=== PATIENT | female | born 1990 | race Caucasian/White ===

== ENCOUNTER 2017-03-03 02:28 | Outpatient (CLI) | payer BC ==
[2017-03-03 02:35] VITALS: BP 134/84; PULSE 78; RESP 16; TEMP 98.3
--- NOTE | 2017-05-01 11:02 | P.MSEPDOC ---
Presenting Problems - Arrival Data Date of Arrival on Unit: 03/03/17 Time of Arrival on Unit: 02:29 Mode of Transport: Ambulatory - Complaint OB-Reason for Admission/Chief Complaint: Possible Onset of Labor Comment: contractions since 2129 Medical History - Information : 2 Para: 1 Term: 1 : 0 Abortions: Spontaneous or Elective: 0 Number of Living Children: 1 - Gestational Age Expected Date of Delivery: 03/20/17 Gestational Age by CAMILLA (wks/days): 46 Weeks and 0 Days Review of Systems - Review of Systems Constitutional: No problems Breast: No problems ENT: No problems Cardiovascular: No problems Respiratory: No problems Gastrointestinal: No problems Genitourinary: No problems Musculoskeletal: No problems Neurological: No problems Skin: No problems Vital Signs - Temperature Temperature: 98.3 F Temperature Source: Oral - Pulse Right Pulse Rate: 78 Pulse Assessment Method: Pulse Oximetry - Respirations Respiratory Rate: 16 O2 Sat by Pulse Oximetry: 97 - Blood Pressure Right Arm Blood Pressure: 134/84 Blood Pressure Mean: 100 Blood Pressure Source: Automatic Cuff Medical Screen Scoring (Pre) - Cervical Exam Dilation: 4-7 cm = 2 Effacement: More than 50% = 2 Membranes: Intact - Uterine Contractions Frequency: > or = 36 weeks =2 Duration: > 40 seconds = 2 Intensity: N/A - Maternal Vital Signs Maternal Temperature: N/A Maternal Blood Pressure: N/A Signs of Preeclampsia: N/A Maternal Respirations: N/A - Assessment Baseline FHR: 135 Heart Rate - NICHD Category: Category I (Normal) = 0 NST: Reactive Position: N/A - Total Score Total Score (Pre): 8 - Level of Risk Level of Risk: Medium (6-9) Medical Screen Scoring (Post) - Cervical Exam Dilation: 4-7 cm = 2 Effacement: More than 50% = 2 Membranes: Intact - Uterine Contractions Frequency: > 5 minutes apart = 1 Duration: > 40 seconds = 2 Intensity: N/A - Maternal Vital Signs Maternal Temperature: N/A Maternal Blood Pressure: N/A Signs of Preeclampsia: N/A Maternal Respirations: N/A - Maternal Trauma Maternal Trauma: N/A - Assessment Heart Rate: 135 Heart Rate - NICHD Category: Category I (Normal) = 0 NST: Reactive Position: N/A Station: N/A - Total Score Total Score (Post): 7 - Post Treatment Level of Risk Post Treatment Level of Risk: Medium (6-9) Physician Notification (Post) - Physician Notified Physician Notified Date: 03/03/17 Physician Notified Time: 04:45 Spoke With: DR VENTURA New Order Received: Yes Disposition - Disposition OB Disposition: Discharge to home, Written follow up instructions reviewed Discharge Date: 03/03/17 Discharge Time: 04:53 I agree with the RN Medical Screening Exam: No Physician's MSE Comment: Gestational age identified at the top of the chart is a 46-0/7 weeks. This cannot be correct. The remainder of the MSE is accurate Risk & Benefit of care provided described in d/c instruction: Yes Diagnosis: FALSE LABOR, UNSPECIFIED
== END 2017-03-03 04:53 | disposition home or self-care (01) ==
LOC: FBPOP 02:28
PROVIDERS: ATTEND Obstetrics & Gynecology
DX: O47.9 False labor, unspecified (principal); Z3A.49 Greater than 42 weeks gestation of pregnancy
CPT/HCPCS: 59025; 99213

== ENCOUNTER 2017-03-11 23:59 | Inpatient (IN) | payer BC ==
[2017-03-12] MEDS ORDERED: CARBOPROST TROMETHAMINE 250 MCG/ML 1 ML AMP IM PRN (00:15)
[2017-03-12] MEDS ORDERED: LIDOCAINE 1% (PF) 10 MG/ML (30 ML SDV) SQ PRN (00:15)
[2017-03-12] MEDS ORDERED: METHYLERGONOVINE 0.2 MG/ML 1 ML AMP IM PRN (00:15)
[2017-03-12] MEDS ORDERED: TERBUTALINE 1 MG/ML VIAL SQ PRN (00:15)
[2017-03-12] MEDS ORDERED: OXYTOCIN 10 UNIT/ML 1 ML VIAL IM PRN (00:15)
[2017-03-12] MEDS: LACTATED RINGERS 1,000 ML IV SCH ×2 (00:32→21:03)
[2017-03-12 00:41] LABS: Basophils % (A) 0 %; CH 32.7; CHCM 35.5; Eosinophils # (A) 0.1 k/uL (0-0.7); Eosinophils % (A) 1 %; HCT 38.7 % (34.0-46.0); HDW 2.56; HGB 13.7 gm/dL (11.4-16.0); Luc # (Auto) 0.45; Luc % (Auto) 4; Lymphocytes # (A) 2.8 k/uL (1.0-4.8); Lymphocytes % (A) 27 %; MCH 32.6 pg (25.0-35.0); MCHC 35.3 g/dL (31.0-37.0); MCV 92.5 fL (80.0-100.0); Mean Platelet Volume 8.3; Monocytes # (A) 0.7 k/uL (0-1.0); Monocytes % (A) 6 %; Neutrophils # (A) 6.4 k/uL (1.3-7.7); Neutrophils % (A) 61 %; RBC 4.18 m/uL (3.80-5.40); RDW 13.5 % (11.5-15.5); WBC 10.5 k/uL (3.8-10.6); WBC (Perox) 9.89
--- NOTE | 2017-03-12 01:25 | P.HPOB ---
History of Present Illness H&P Date: 03/12/17 Chief Complaint: My water broke at 1045. This is a 26-year-old white female 2 para 1001 EDC 03/20/2017 at 38-6/7 weeks' gestation. Patient presented with a complaint of her water breaking at home, clear fluid, with strong regular uterine contractions to follow. Fetus is been active throughout the . is remarkable for estimated weight greater than 97th percentile. She denies vaginal bleeding. Past medical history is significant for anxiety, bulimia, and depression controlled with Wellbutrin. Past surgical history wisdom teeth extracted, some surgery in the past, colposcopy. Current medications vitamin daily, Singulair 10 mg daily ALLERGIES include seasonal ALLERGIES as well as well as yeast ALLERGY. Family history significant for Down syndrome and a paternal uncle. Social history patient is a middle school tutor in [employer], she is , she has never smoked tobacco and denies drug use. Obstetric history: Blood type O positive, rubella status immune. Hepatitis B surface antigen, rupee strep cultures, HIV testing, gonorrhea and chlamydia cultures all negative. Thyroid function studies within normal limits. Urine culture negative. One-hour Glucola 102. On exam this is a pleasant white female, 5 foot 2 inches, 185 pounds, blood pressure 136/83, vital signs are stable and she is afebrile. The general physical exam is within normal limits. The chest is clear in all ram. Cervix on admission 7 cm dilated, -2 station, vertex presentation, obvious ruptured membranes, 80-90% effaced. heart tones consistent with reactive NST. Impression: 38-6/7 weeks intrauterine , anticipated large for gestational age fetus, active spontaneous labor. All signs reassuring. Plan: Close maternal and surveillance. Analgesic options are offered to the patient. Anticipate normal spontaneous vaginal delivery. Past Medical History Additional Past Medical History / Comment(s): bulimia History of Any Multi-Drug Resistant Organisms: None Reported Past Surgical History: Orthopedic Surgery Additional Past Surgical History / Comment(s): nasal vessels cauterized, thumb surgery Past Anesthesia/Blood Transfusion Reactions: No Reported Reaction Past Psychological History: Anxiety Additional Psychological History / Comment(s): medicated with xanax pre- Smoking Status: Never smoker Past Alcohol Use History: None Reported Past Drug Use History: None Reported - Past Family History Mother Family Medical History: No Reported History Medications and Allergies Home Medications Medication Instructions Recorded Confirmed Type Montelukast [Singulair] 10 mg PO DAILY 12/09/16 03/12/17 History No.77/Iron Asp Gly/FA 1 each PO DAILY 12/09/16 03/12/17 History [Prenate Star Tablet] Allergies Allergy/AdvReac Type Severity Reaction Status Date / Time Yeast AdvReac Intermediate Abdominal Verified 03/12/17 00:09 Pain Exam - Vital Signs Vital signs: Vital Signs Temp Pulse Resp BP Pulse Ox 03/12/17 00:26 80 18 03/12/17 00:16 97.0 F L 80 18 136/83 99 Intake and Output 03/11/17 03/11/17 03/12/17 14:59 22:59 06:59 Other: Weight 83.915 kg Patient Weight 03/12/17 06:59 Weight 83.915 kg Results Result Diagrams: 03/12/17 00:30
[2017-03-12] MEDS ORDERED: BENZOCAINE/MENTHOL SPRAY 1 GM/SPRAY AEROSOL TOPICAL PRN (01:28)
[2017-03-12] MEDS ORDERED: diphenhydrAMINE 25 MG CAP PO PRN (01:28)
[2017-03-12] MEDS ORDERED: HYDROCORTISONE 2.5% RECTAL CREAM 30 GM TUBE RECTAL PRN (01:28)
[2017-03-12] MEDS ORDERED: diphenhydrAMINE 50 MG CAP PO PRN (01:28)
[2017-03-12] MEDS ORDERED: ACETAMINOPHEN TAB 325 MG TAB PO PRN (01:28)
[2017-03-12] MEDS ORDERED: WITCH HAZEL 1 EACH MED..PAD TOPICAL PRN (01:28)
[2017-03-12] MEDS ORDERED: diphenhydrAMINE ELIXIR 25 MG/10 ML CUP PO PRN (01:28)
[2017-03-12] MEDS ORDERED: LANOLIN CREAM 5 GM TUBE TOPICAL PRN (01:28)
[2017-03-12] MEDS ORDERED: SIMETHICONE 80 MG CHEWABLE PO PRN (01:28)
[2017-03-12] MEDS ORDERED: ZOLPIDEM 5 MG TAB PO PRN (01:28)
[2017-03-12] MEDS ORDERED: diphenhydrAMINE 50 MG/ML 1 ML VIAL IVP PRN ×2 (01:28)
[2017-03-12] MEDS ORDERED: Acetaminophen-Codeine 300-30mg TAB PO PRN (01:28)
--- NOTE | 2017-03-12 01:28 | P.PROBDLV ---
Vaginal Delivery Note - . Vaginal Delivery Note: This is a 26-year-old white female 2 para 1001 EDC 03/20/2017 at 38-6/7 weeks' gestation. Patient presented to labor and delivery with spontaneous amniorrhexis which occurred at home, clear fluid. Strong regular uterine contractions to follow. is remarkable for suspected large for gestational age , estimated weight greater than 97th percentile. Group B strep cultures are negative. Please see dictated history and physical for details. Patient progressed well through the first stage of labor. Analgesic options were discussed and were declined. She was judged to be completely dilated at 0101 hrs. The perineal body was prepped and draped in the usual sterile fashion. Patient pushed with an exaggerated Tamiko maneuver and the head delivered occiput anterior. Baby restituted accordingly. There was no nuchal cord noted. The right or anterior shoulder became impinged behind the pubic symphysis. Suprapubic pressure was applied per nursing staff. The shoulder then gently and easily delivered. The oropharynx, nasopharynx and external nares were bulb suctioned on the perineal body. Patient was officially delivered of a liveborn female infant at 0108 hrs. Umbilical cord was doubly clamped and ligated, she was handed to waiting nurses for evaluation where scores of 8 and 9 at one and 5 minutes respectively were given. The placenta delivered spontaneously, it was inspected and noted to be intact with trivascular cord at 0111 hours. The uterus was then massaged. Inspection of the cervix, vagina, perineum, periurethral and perirectal areas revealed no lacerations and no defects. Estimated blood loss 300 mL's. All sponge needle and enhancement counts are correct at the end of the procedure. Infant weighed 9 lbs. 0 oz. or 4095 g. She is moving both upper extremities without difficulties.
[2017-03-12] MEDS ORDERED: OXYTOCIN 20 UNITS/1000 ML NS 1,000 ML IV SCH (01:45)
[2017-03-12] MEDS: IBUPROFEN 600 MG TAB PO PRN ×3 (01:52→15:18)
[2017-03-12] MEDS: SENNOSIDES-DOCUSATE SODIUM 1 EACH TAB PO SCH ×2 (08:38→21:03)
[2017-03-13 07:56] VITALS: BP 118/75; PULSE 73; RESP 16; TEMP 97.7
[2017-03-13] MEDS: SENNOSIDES-DOCUSATE SODIUM 1 EACH TAB PO SCH (09:33)
--- NOTE | 2017-03-13 10:39 | P.DS ---
Providers Date of admission: 03/12/17 00:15 Expected date of discharge: 03/13/17 Attending physician: Samir Magaña Primary care physician: Stated None - Discharge Diagnosis(es) (1) Normal spontaneous vaginal delivery Current Visit: Yes Status: Acute Hospital Course: The patient is a 26-year-old 2 para 1001 admitted at 38-6/7 weeks by good dating parameters. She was admitted with documented spontaneous rupture of membranes and all signs reassuring. Her was remarkable only for large for gestational age with estimated weight greater than 97th percentile in the third trimester. On labor and delivery, she made fairly rapid progress to the active phase of labor and progressed to complete where after she pushed to a normal spontaneous vaginal delivery of a viable 9 lbs. 0 oz. baby girl with Apgars of 8 at 1 minute and 9 at 5 minutes. There was a mild shoulder dystocia which was reduced fairly quickly and easily with Tamiko maneuver and suprapubic pressure alone. Her course was unremarkable with vital signs remaining stable and her temperature was afebrile throughout. She was deemed stable for discharge by day #1 was discharged home to follow-up in the office in 6 weeks' time routinely. Discharge instructions included calling for any significantly increased bleeding or foul-smelling lochia, significantly increased fever abdominal pain, perineal complaints, breast complaints, or anything else that concerned her. She was additionally instructed to have nothing in the vagina for at least 6 weeks time to include intercourse. She understood her instructions and agrees to follow-up in 6 weeks' time as noted above. Discharge medications included continued vitamins as she has opted to breast-feed. She was additionally given a prescription for a dual electric breast pump. She was otherwise to use [id number] analgesic pain medications as needed. Maternal blood type is O+ and rubella status is immune. Procedures: #1. Normal spontaneous vaginal delivery Patient Condition at Discharge: Good Plan - Discharge Summary New Discharge Prescriptions: No Action No.77/Iron Asp Gly/FA [Prenate Star Tablet] 1 each PO DAILY Montelukast [Singulair] 10 mg PO DAILY Discharge Medication List Montelukast [Singulair] 10 mg PO DAILY 12/09/16 [History] No.77/Iron Asp Gly/FA [Prenate Star Tablet] 1 each PO DAILY 12/09/16 [ History] Follow up Appointment(s)/Referral(s): Samir Magaña MD [STAFF PHYSICIAN] - 6 Weeks Discharge Disposition: HOME SELF-CARE
== END 2017-03-13 11:55 | disposition home or self-care (01) | DRG 775 ==
LOC: FBPOP 23:59 → 4FBP 03-12 00:15
PROVIDERS: ADMIT Obstetrics & Gynecology; ATTEND Obstetrics & Gynecology
PROC: 10E0XZZ Delivery of Products of Conception, External Approach (ICD-10-PCS; principal; 2017-03-12)
DX: O36.63X0 Maternal care for excessive fetal growth, third trimester, not applicable or unspecified (principal); O99.344 Other mental disorders complicating childbirth; F41.9 Anxiety disorder, unspecified; O66.0 Obstructed labor due to shoulder dystocia; O99.52 Diseases of the respiratory system complicating childbirth; J30.2 Other seasonal allergic rhinitis; Z3A.38 38 weeks gestation of pregnancy; Z37.0 Single live birth; Z86.59 Personal history of other mental and behavioral disorders; Z91.048 Other nonmedicinal substance allergy status; Z79.899 Other long term (current) drug therapy; Z82.79 Family history of other congenital malformations, deformations and chromosomal abnormalities
CPT/HCPCS: 59025; 84112; 85025; 88307; 99213